=== PATIENT | female | born 1980 | race Caucasian/White ===

== ENCOUNTER 2020-10-14 13:42 | Emergency (ER) | payer MEDICAID, SELFPAY ==
[2020-10-14 14:45] VITALS: BP 149/83; PULSE 83; RESP 20; TEMP 36.8; O2SAT 100; BMI 33.6
--- NOTE | 2020-10-14 15:17 | HMH.EDUTC ---
[facility] [place] Disposition Clinical Impression: Exposure to COVID-19 virus Disposition: Home, Self-Care Condition on Discharge: Good Instructions: Preventing the Spread of Coronavirus Discharge Instructions Additional Instructions: Drink plenty of fluids. Take tylenol for pain or fever. Return if you begin to have difficulty breathing. Follow up with your regular doctor. GO TO THE ER FOR ANY WORSENING SYMPTOMS Referrals: Sabra Mascorro [Primary Care Provider] - Time of Disposition: 15:18 Medical Decision Making - Medical Records Medical records reviewed: No: I reviewed the patient's medical records. - Coy Inquiry Pt receiving controlled substance: No Vital Signs: 10/14/20 14:45 10/14/20 15:23 Temperature 98.2 F 98.2 F Temperature Source Oral Pulse Rate 83 Pulse Rate [Right Brachial] 83 Respiratory Rate 20 20 Blood Pressure 149/83 H Blood Pressure [Right Arm] 149/83 H Blood Pressure Mean [Right Arm] 105 Blood Pressure Source [Right Arm] Automatic Cuff Blood Pressure Position [Right Arm] Sitting 02 Sat by Pulse Oximetry 100 Oxygen Delivery Method Room Air Orders (Tests/Meds): ORDERS Category Date Time Status Covid-19 Nasal PCR ([facility]) Routine Lab 10/14/20 14:40 Received [facility] [place] HPI - General Stated complaint: Covid exposure Time Seen by Provider: 10/14/20 15:17 Mode of Arrival: Ambulatory Source of Information: Patient Limitations: No Limitations Description of Symptoms (Recalled from Triage Doc. by RN): REQUESTING COVID TEST D/T EXPOSURE; DENIES SYMPTOMS HEENT Symptoms (Recalled from RN notes): No Resp Symptoms (Recalled from RN notes): No Skin Symptoms (Recalled from RN notes): No MS Symptoms (Recalled from RN notes): No Functional Status (Recalled from RN notes): WNL - History of Present Illness Provider Complaint: She denies any symtoms, but she was exposed to covid 3 days ago. - Related Data Allergies Allergy/AdvReac Type Severity Reaction Status Date / Time Penicillins Allergy Verified 10/14/20 15:11 - Worker's Comp Is this a Worker's Comp case?: No [facility] History - Hepatitis A Screen Drug use history?: No High risk sexual behaviors?: No History of sexually transmitted infection?: No Currently employed?: No Childcare worker?: No Do you have indoor plumbing?: Yes Do you have electricity?: Yes Attestation statement:: This patient has been screened for Hepatitis A risk factors. I have reviewed the patient's past medical history: Yes - Social History Alcohol Intake: never Occupational Status: other ROS Obtained: Yes All systems reviewed & no additional complaints - Constitutional Constitutional: Reports system reviewed and no additional complaints, except as docu - Eyes Eyes: Reports system reviewed and no additional complaints, except as docu - ENT Ears, Nose, Mouth, and Throat: Reports system reviewed and no additional complaints, except as docu - Cardiovascular Cardiovascular: Reports system reviewed and no additional complaints, except as docu - Respiratory Respiratory: Yes system reviewed and no additional complaints, except as docu - Gastrointestinal Gastrointestingal: Reports: system reviewed and no additional complaints, except as docu Physical Exam - General General appearance: alert, in no apparent distress - Head Head exam: atraumatic, normocephalic, normal inspection - Eye Eye exam: Present: normal appearance, PERRL, EOMI - ENT ENT exam: Present: normal exam, normal oropharynx, mucous membranes moist, TM's normal bilaterally, normal external ear exam - Neck Neck exam: Present: normal inspection, full ROM, trachea midline. Absent: meningismus, lymphadenopathy - Chest Chest inspection: Present: normal inspection, symmetric chest wall rise. Absent: tenderness - Respiratory Respiratory exam: Present: normal lung sounds bilaterally. Absent: respiratory distress - Cardiovascular Cardiovascular exam: Pres
[2020-10-14 15:23] VITALS: BP 149/83; PULSE 83; RESP 20; TEMP 36.8; O2SAT 100
== END 2020-10-14 15:25 | disposition home or self-care (01) ==
PROVIDERS: Emergency Provider Nurse Practitioner Family; PCP Nurse Practitioner Family
DX: Z20.828 Contact with and (suspected) exposure to other viral communicable diseases (principal)
CPT/HCPCS: 99201; U0003

== ENCOUNTER 2021-08-13 13:02 | Emergency (ER) | payer MEDICAID, SELFPAY ==
[2021-08-13 15:33] VITALS: BP 114/76; PULSE 88; RESP 19; TEMP 36.8; O2SAT 100; BMI 34.3
--- NOTE | 2021-08-13 15:43 | HMH.EDUTC ---
[facility] [place] Impression: Exposure to COVID-19 virus Disposition: Home, Self-Care Condition on Discharge: Good Instructions: DI for COVID-19 (Suspected or Confirmed ), Preventing the Spread of Coronavirus Discharge Instructions Additional Instructions: *Monitor Temp, Over the counter Motrin or Tylenol as directed/as needed Tylenol every 4 hours and Motrin every 6 hours (as long as your family doctor has told you that you can take it) for fever or pain. and straight to ER if unable to lower temp less than 101.0 after medication given Follow up IMMEDIATELY for new or worsening symptoms or no Noticeable improvement over the next 48-72 hours. 911 for difficulty breathing or swallowing You were tested for today for COVID19 your test result should be back in the next 24-48 hours, You was given handout for instructions to log onto the [email or web address] Portal to view your result if you are unable to log on you may call You was given a handout with instructions for Self Quarantine and Self isolation for while you wait on test results and what to do if they are positive If you are positive the Health Dept will be contacting you also Make sure to take your Vitamins Vit. C Vit D and Zinc if you can take them Referrals: Sabra Mascorro [Primary Care Provider] - As needed Forms: Work/School Release Medical Decision Making - Coy Inquiry Pt receiving controlled substance: No Coy was queried for this patient: No Vital Signs: 08/13/21 15:33 Temperature 98.3 F Temperature Source Oral Pulse Rate [Right Brachial] 88 Respiratory Rate 19 Blood Pressure [Right Arm] 114/76 Blood Pressure Mean [Right Arm] 88 Blood Pressure Source [Right Arm] Automatic Cuff Blood Pressure Position [Right Arm] Sitting 02 Sat by Pulse Oximetry 100 Oxygen Delivery Method Room Air Orders (Tests/Meds): ORDERS Category Date Time Status Covid-19 Nasal PCR ([facility]) Routine Lab 08/13/21 15:04 Ordered [facility] [place] - General Stated complaint: covid test Time Seen by Provider: 08/13/21 15:43 Mode of Arrival: Ambulatory Source of Information: Patient Description of Symptoms (Recalled from Triage Doc. by RN): covid test HEENT Symptoms (Recalled from RN notes): No Resp Symptoms (Recalled from RN notes): No Skin Symptoms (Recalled from RN notes): No MS Symptoms (Recalled from RN notes): No Functional Status (Recalled from RN notes): yes - History of Present Illness Provider Complaint: Patient states that she was recently around her uncle that tested positive for COVID states that she is not having any symptoms but wanted to get tested - Related Data Allergies Allergy/AdvReac Type Severity Reaction Status Date / Time Penicillins Allergy Verified 08/13/21 15:32 - Worker's Comp Is this a Worker's Comp case?: No Is this an [facility] Worker's Comp?: No Is this a [facility] Worker's Comp?: No H History - Hepatitis A Screen Drug use history?: No High risk sexual behaviors?: No History of sexually transmitted infection?: No Currently employed?: No Childcare worker?: No Do you have indoor plumbing?: Yes Do you have electricity?: Yes Attestation statement:: This patient has been screened for Hepatitis A risk factors. I have reviewed the patient's past medical history: Yes Medical History: Reports:: Diabetes Mellitus Type 2 Denies:: Cancer, Diabetes Mellitus Type 1, MRSA Amputation: No - Social History Alcohol Intake: never Occupational Status: other ROS Obtained: Yes All systems reviewed & no additional complaints, Yes Systems reviewed as appropriate & no additional complaints - Constitutional Constitutional: Reports system reviewed and no additional complaints, except as docu, Denies body ache, Denies chills, Denies fever(s), Denies headache(s) - ENT Ears, Nose, Mouth, and Throat: Reports system reviewed and no additional complaints, except as docu, Denies otalgia, Denies sinus pain, Denies sinus pressure, Denies sore throat
[2021-08-13 16:36] VITALS: BP 114/76; PULSE 88; RESP 19; TEMP 36.8; O2SAT 100
== END 2021-08-13 16:36 | disposition home or self-care (01) ==
PROVIDERS: Emergency Provider Nurse Practitioner; PCP Nurse Practitioner Family
DX: Z20.822 Contact with and (suspected) exposure to COVID-19 (principal); E11.9 Type 2 diabetes mellitus without complications; Z88.0 Allergy status to penicillin
CPT/HCPCS: 99202; C9803; G0463; U0003; U0005

== ENCOUNTER → 2022-04-20 16:00 | Outpatient (CLI) | payer MEDICAID, SELFPAY ==
--- NOTE | 2022-04-20 16:04 | MM_ITS ---
PROCEDURE INFORMATION: Exam: Bilateral Screening 3D Mammography Exam date and time: 04/20/2022 4:08 PM Age: 41 years old Clinical indication: Baseline. Her maternal aunt had breast cancer. TECHNIQUE: Imaging protocol: Bilateral Screening tomosynthesis and 2D mammography including computer-aided detection (CAD) when performed. COMPARISON: No relevant prior studies available. FINDINGS: MAMMOGRAPHY: Breast composition: The breasts are heterogeneously dense, which may obscure small masses. Mass: None. Architectural distortion: None. Calcifications: Grouping of calcifications in the left breast, 12 o'clock, middle 3rd. Asymmetric density: None. Skin thickening: None. Axillary adenopathy: None. IMPRESSION: Patient to be recalled for left diagnostic magnification views in CC and true lateral for further evaluation of left breast calcifications. ASSESSMENT: BI-RADS Category 0: Incomplete- Need Additional Imaging Evaluation and/or Prior Mammograms for Comparison
== END ==
PROVIDERS: PCP Nurse Practitioner Family; Visit Provider Nurse Practitioner Family
DX: Z12.31 Encounter for screening mammogram for malignant neoplasm of breast (principal)
CPT/HCPCS: 77063; 77067

== ENCOUNTER → 2023-06-20 14:32 | Outpatient (CLI) | payer MEDICAID, SELFPAY ==
--- NOTE | 2023-06-20 14:50 | MM_ITS ---
PROCEDURE INFORMATION: Exam: MG Left Diagnostic Breast Tomosynthesis Exam date and time: 06/20/2023 2:38 PM Age: 43 years old Clinical indication: Callback for additional assessment of left breast calcifications identified on 04/20/2022 screening mammogram TECHNIQUE: Imaging protocol: Left Diagnostic tomosynthesis and 2D mammography including computer-aided detection (CAD) when performed. Unilateral or bilateral exam. COMPARISON: 1. MG MM MAMMO DIGITAL SHAHRZAD SCREEN BILAT 05/17/2023 9:37 AM 2. MG MM DIG SCREENING MAMM BI W/CAD 04/20/2022 4:08 PM FINDINGS: MAMMOGRAPHY: Magnification views in CC and lateral projection demonstrate a pleomorphic cluster of microcalcifications approximating 12 -1 o'clock left breast 6 the cm from the nipple. No suspicious mass or associated architectural distortion IMPRESSION: Stereotactic core biopsy is recommended to definitively characterize a developing cluster of calcifications in the 12-1 o'clock left breast approximately 6 cm from the nipple ASSESSMENT: BI-RADS category 4: Suspicious
== END ==
PROVIDERS: PCP Nurse Practitioner Family; Visit Provider Nurse Practitioner Family
DX: R92.2 Inconclusive mammogram (principal); N63.20 Unspecified lump in the left breast, unspecified quadrant
CPT/HCPCS: 77061; 77065; G0279

== ENCOUNTER → 2023-07-10 08:26 | Outpatient (CLI) | payer MEDICAID, SELFPAY ==
--- NOTE | 2023-07-10 08:37 | MM_ITS ---
FINAL REPORT CLINICAL HISTORY: .lt breast calcifications FINDINGS: STEREOTACTIC GUIDED RIGHT BREAST BIOPSY, CLIP PLACEMENT, SPECIMEN RADIOGRAPH AND POST BIOPSY MAMMOGRAM Indication: Suspicious calcifications Findings: The stereotactic guided breast biopsy procedure was explained in detail to the patient including potential risk and benefits. The patient voiced an understanding of the procedure, was given an opportunity to ask questions, after which informed consent was obtained. The patient was positioned upon the stereotactic unit in the upright position. The breast was prepped in the usual sterile fashion. Subcutaneous soft tissues were anesthetized with lidocaine with epinephrine. Subsequently, with intermittent stereotactic guidance, the stereotactic biopsy needle was advanced into the breast in the region of the mammographic abnormality corresponding to recent diagnostic mammogram. Multiple vacuum assisted core samples were obtained. Sampling was thought to be adequate and the biopsy clip marker was deployed in the region of biopsy. Additional imaging as detailed below was performed. Specimen radiograph: Calcifications confirmed adequate Post procedure routine CC and MLO view mammogram: Post biopsy changes. Biopsy marker clip noted to be in the appropriate location. Patient tolerated the procedure well. No immediate complications. IMPRESSION: 1. Technically successful stereotactic guided biopsy of left breast calcifications 2. Biopsy marker clip deployed 3. Post biopsy mammogram obtained as above Histopathology results reveal proliferative fibrocystic changes without atypical hyperplasia or carcinoma. Pathology is concordant with mammographic findings. Recommend 6 month mammographic follow-up as routine benign postbiopsy surveillance. Authenticated and ERN
--- NOTE | 2023-07-10 08:37 | MM_ITS ---
FINAL REPORT CLINICAL HISTORY: s/p clip placement FINDINGS: MAMMOGRAM LEFT TECHNIQUE: Standard digital 2-D views COMPARISON: 04-20-22 and 05-17-23 DENSITY: There are scattered areas of fibroglandular density FINDINGS: Post biopsy marker clip is noted to be in satisfactory position. Postbiopsy changes are noted. Previously noted calcifications in the superior central left breast are no longer evident reflective of recent sampling. IMPRESSION: Biopsy marker clip in good position RECOMMENDATION: Given benign histopathology concordant with imaging findings, six-month mammographic follow-up is recommended as part of normal post benign biopsy surveillance Authenticated and ERN
== END ==
PROVIDERS: PCP Nurse Practitioner Family; Visit Provider Nurse Practitioner Family
DX: R92.1 Mammographic calcification found on diagnostic imaging of breast (principal)
CPT/HCPCS: 19081; 76098; 77065

== ENCOUNTER 2024-04-17 12:17 | Outpatient (CLI) | payer MEDICAID, SELFPAY ==
--- NOTE | 2024-04-17 12:23 | MM_ITS ---
PROCEDURE INFORMATION: Exam: MG Left Diagnostic Breast Tomosynthesis Exam date and time: 04/17/2024 12:51 PM Age: 43 years old Clinical indication: Short-term radiographic followup; Left breast; biopsy. Inconclusive mammography finding TECHNIQUE: Imaging protocol: Left Diagnostic tomosynthesis and 2D mammography including computer-aided detection (CAD) when performed. Unilateral or bilateral exam. COMPARISON: 1. MG MM CLIP PLACEMENT LT 07/10/2023 10:19 AM 2. MG MM SURGICAL SPECIMEN LT 07/10/2023 10:02 AM FINDINGS: MAMMOGRAPHY: Breast composition: There are scattered areas of fibroglandular density. Breast mammogram findings: There is no stellate mass, architectural distortion or suspicious microcalcifications to suggest malignancy. A clip is noted in the middle third of the left upper breast. No skin thickening or axillary adenopathy. IMPRESSION: No mammographic evidence of malignancy. Annual bilateral mammographic screening is recommended unless otherwise clinically indicated. ASSESSMENT: BI-RADS Category 1: Negative
== END 2024-04-17 23:59 | disposition home or self-care (01) ==
LOC: RAD 12:18
PROVIDERS: PCP Nurse Practitioner Family; Visit Provider Nurse Practitioner Family
DX: R92.2 Inconclusive mammogram (principal)
CPT/HCPCS: 77061; 77065; G0279